=== PATIENT | female | born 1990 ===

== ENCOUNTER 2019-02-11 16:03 | Emergency (ER) | payer MEDICAID ==
[2019-01-16 21:30] VITALS: BMI 36.1
[2019-02-11] MEDS: Lactated Ringer's 2,000 ML IV SCH ×2 (16:34→17:45)
[2019-02-11 16:51] LABS: HEMOGLOBIN 11.4 g/dL (12.0-16.0); MEAN CELL VOLUME 89.2 fl (81.0-99.0); MEAN CORPUSCULAR HEMOGLOBIN 29.7 pg (27.0-31.0); MEAN CORPUSCULAR HGB CONC 33.2 g/dL (33.0-37.0); RBC 3.85 Mil/uL (3.80-5.20); RED CELL DISTRIBUTION WIDTH 14.9 % (11.5-14.5); WHITE BLOOD COUNT 9.1 K/uL (4.8-10.8)
[2019-02-11 17:00] LABS: ALB/GLOB RATIO 1.1 (1.0-2.1); ALBUMIN 3.8 g/dL (3.5-5.0); ALT/SGPT 35 U/L (9-52); AST/SGOT 35 U/L (14-36); BLOOD UREA NITROGEN 9 mg/dl (7-17); CALCIUM 9.4 mg/dL (8.4-10.2); GFR NON-AFRICAN AMERICAN > 60
[2019-02-11 17:09] LABS: SQUAMOUS EPITHIAL 9 /hpf (0-5); URINE BACTERIA RARE (<OCC); URINE BILIRUBIN NEGATIVE (NEGATIVE); URINE BLOOD NEGATIVE (NEGATIVE); URINE CLARITY CLOUDY (Clear); URINE COLOR YELLOW (YELLOW); URINE GLUCOSE (UA) NEG (NEGATIVE); URINE LEUKOCYTE ESTERASE TRACE Leu/uL (Negative); URINE PROTEIN NEGATIVE (NEGATIVE); URINE UROBILINOGEN 0.2-1.0 mg/dL (0.2-1.0)
--- NOTE | 2019-02-11 18:48 | OBDCSUM ---
Datetime: 02/11/2019 18:46 Discharged to, Provider: Home Follow up at, Provider: [facility] Disch Instr Activity: Normal activity Disch Instr Diet: Regular Discharge Instructions, Provider: Routine instructions given Discharge Diagnosis, Provider: Shaun Labor - Undelivered Follow up in weeks, Provider: this week as scheduled Disch Referrals: None Contraception discussed, Prov: Yes Disch Activity Restrictions: No sexual activity; Nothing in vagina - [place]iny Breezes, tampons, douche
--- NOTE | 2019-02-11 18:48 | OBHP ---
Datetime: 02/11/2019 16:59 IP Adm Impression: , intrauterine ; No Active Labor; Intact Membranes IP Admit Plan: Observation/Evaluation Admit Comment, IP Provider: 28 yo f 36.2 wk with Prev c-sec due macrosomia, present with cramp since morning, Otherwise patient have no other complains. Pt report good movement she denies fever chills, chest pain, sob, diarrhea, or constipation. PCP Mick Edwards Allergy: Tramadol med: PNV PMH: none PSH c-sec due macrosomia PFH: dad DM, mom healthy social denies smoke drink or drug use 16:58 Assessment and plan 28 yo f 36.2 wk with Prev c-sec due macrosomia, present with cramp since morning, Otherwise p atient have no other complains. WIll observed CBC CMP UA Monitor vitals Monitor heart Monitor for exacerbation IV fluid 2 lit Reassessment 18:33 Pt Symptoms improved CBC CMP and UA WNL Pelvic cervix closed Patient will be discharge to follow up with PCP. ER precaution given Tavon PGY1 case discussed with Dr Khan OB Hospitalist litigation docket manager. With PGY1, i saw and examied this patinet. Agree with note...Pt had x 1 and C/S x 1. Not in active labor...labor instructions given. Tyleno 325mg 2 tab po q 4h prn lonny n. chart rev'd MAHNDO Pelvic Type - PN: Adequate Extremities - PN: Normal Abdomen - PN: Normal Back - PN: Normal Breast - PN: Normal Lungs - PN: Normal Heart - PN: Normal Thyroid - PN: Normal Neurologic - PN: Normal HEENT - PN: Normal General - PN: Normal Presentation-Admit: Vertex IP Fetus A Comments: Sono cephalic FHR - Baseline A Provider: 140 Comments, ACOG Physical Exam: heart s1 s2 heard no extra heart sound lung clear abd nontender bs+ Cervix closed long Gestation - Est Wks by US: 36.2 IP Hx Assessment: The History has been Reviewed and is Current EGA AdmitDate IP: 36.2 Vital Signs Provider: Reviewed IP Chief Complaint: Uterine contractions NICHD Variability Prov Fetus A: Moderate 6-25bpm NICHD Accel Fetus A IP Provider: 15X15 FHR Category Provider Fetus A: Category I Dilatation, Provider: 0 Effacement, Provider: 0 Station, Provider: 0 Genitourinary Exam: Normal DTRs - PN: Normal
[2019-02-12 04:02] VITALS: BP 124/60; PULSE 103; RESP 16; TEMP 98.3
== END 2019-02-11 20:30 | disposition home or self-care (01) ==
LOC: H.EROB2 16:03
DX: O26.93 Pregnancy related conditions, unspecified, third trimester (principal); R10.2 Pelvic and perineal pain; Z87.59 Personal history of other complications of pregnancy, childbirth and the puerperium; Z3A.36 36 weeks gestation of pregnancy; O09.293 Supervision of pregnancy with other poor reproductive or obstetric history, third trimester
CPT/HCPCS: 80053; 81003; 85027; 96360; 96361; 99283; J7120

== ENCOUNTER 2019-02-28 14:22 | Inpatient (IN) | payer MEDICAID ==
[2019-02-28 14:36] VITALS: BMI 39.4
[2019-02-28] MEDS ORDERED: Lactated Ringer's 1,000 ML IV ONE (15:27)
[2019-02-28] MEDS ORDERED: ceFAZolin 2 GM in Sodium Chloride 0.9% 100 ML IVPB ONE (15:29)
[2019-02-28] MEDS ORDERED: Oxytocin 30 UNIT in NS 500 ml 30 UNITS/500 ML BAG IV ONE ×2 (15:29→16:21)
[2019-02-28] MEDS ORDERED: OXYTOCIN/0.9 % NS 20 UNIT/1,000 ML BAG IV SCH ×2 (15:30→21:43)
[2019-02-28] MEDS ORDERED: Lactated Ringer's 1,000 ML IV SCH (15:30)
[2019-02-28 16:00] LABS: HEMOGLOBIN 12.1 g/dL (12.0-16.0); MEAN CORPUSCULAR HEMOGLOBIN 29.4 pg (27.0-31.0); RBC 4.13 Mil/uL (3.80-5.20); RED CELL DISTRIBUTION WIDTH 15.2 % (11.5-14.5); WHITE BLOOD COUNT 8.6 K/uL (4.8-10.8)
[2019-02-28 16:19] LABS: ALBUMIN 3.3 g/dL (3.5-5.0); ALT/SGPT 36 U/L (9-52); AST/SGOT 36 U/L (14-36); BLOOD UREA NITROGEN 13 mg/dl (7-17); CALCIUM 9.1 mg/dL (8.4-10.2); GFR NON-AFRICAN AMERICAN > 60; URIC ACID 3.7 mg/Dl (2.2-7.5)
[2019-02-28] MEDS ORDERED: Morphine 5 mg/10 ml preservative-free Inj(Duramorph) ONE (17:40)
--- NOTE | 2019-02-28 17:47 | OBADHP ---
Datetime: 02/28/2019 14:57 Admit Comment, IP Provider: 28 YO with IUP at EGA 38.5 weeks, EDC 03/09/19, presents to EDOB w ith c/o Uterine CONTX that started at 10 PM yesterday and has increased in frequency and intensity no w Q 30 min x last 10 min, patient denies VB, LOF. Patient reports she is schedule for repeat C-sectio n this 03/02/19. Patient endorses +FM. Denies PAUL, CP, SOB, N/V, dysuria, fever or other complaint at pr esent. ROS: as per HPI OBGYN: 1st term 2010 , second 2011 due to macrofetus. X1 AB. Pat ient denies problems during current . Provider: Dr Iglesias, at [facility] PMH: Denies FMH: Denies PSH: x1 , Vaginal hernia repair, Hemorrhoids. Medications: PNV Allergies: Tramadol Social: Denies tobacco, alcohol or drug use in this labs: RPR/HIV non-reactive, negative, GBS negative. ABO O+ ab negative PE GEN: Appears unconfortable due to pain HEENT: NCAT RESP: CTA bilateral CV: RRR, no murmurs ABD: Gravid EXT: Ankle edema+2 A/P 28 YO with IUP at EGA 38.5 weeks, EDC 03/09/19, with c/o Uterine CONTX coming for evaluation of possible onset of labor, with prior history of -Admit to L_D -IVF LR -meternal VS minitoring --FHR monitoring Case discussed with Dr Antione Wills MD PGY1 OB Hospitalist on-call - With jeep mechanic, condition explained to pt incl elevated BP, previous C/S . Shje deceliend and agrees to operative deliovery. Informed consent obtianed with jeep mechanic p resent Extremities - PN: Abnormal Abdomen - PN: Normal Breast - PN: Not Done Lungs - PN: Normal Heart - PN: Normal HEENT - PN: Normal General - PN: Normal FHR - Baseline A Provider: 145 Comments, ACOG Physical Exam: see note IP Hx Assessment: The History has been Reviewed and is Current IP Chief Complaint: Uterine contractions; Maternal discomfort NICHD Variability Prov Fetus A: Moderate 6-25bpm NICHD Accel Fetus A IP Provider: [id number] NICHD Decel Fetus A IP Provider: None EGA AdmitDate IP: 38.5 IP Adm Impression: Term, intrauterine IP Admit Plan: Admit to unit Datetime: 02/28/2019 14:39 Vital Signs Provider: Reviewed Datetime: 02/11/2019 16:59 Pelvic Type - PN: Adequate Back - PN: Normal Thyroid - PN: Normal Neurologic - PN: Normal Presentation-Admit: Vertex IP Fetus A Comments: Sono cephalic Gestation - Est Wks by US: 36.2 FHR Category Provider Fetus A: Category I Dilatation, Provider: 0 Effacement, Provider: 0 Station, Provider: 0 Genitourinary Exam: Normal DTRs - PN: Normal
[2019-02-28] MEDS ORDERED: Absorbable Gelatin Sponge Size 12-7 ONE (18:21)
[2019-02-28] MEDS ORDERED: Oxycodone/Acetaminophen 5/325 mg Tab PO PRN ×3 (19:21→21:43)
[2019-02-28] MEDS ORDERED: DiphenhydrAMINE 50 mg/ml Inj IVP PRN ×2 (19:44→21:43)
[2019-02-28] MEDS ORDERED: Simethicone 80 mg Chewtab PO SCH (22:00)
[2019-02-28] MEDS: Simethicone 80 mg Chewtab PO SCH (22:00)
[2019-03-01] MEDS: Simethicone 80 mg Chewtab PO SCH ×4 (03:59→22:03)
[2019-03-01 06:08] LABS: MEAN CELL VOLUME 89.5 fl (81.0-99.0); MEAN CORPUSCULAR HGB CONC 33.5 g/dL (33.0-37.0); RBC 3.29 Mil/uL (3.80-5.20); RED CELL DISTRIBUTION WIDTH 15.4 % (11.5-14.5)
[2019-03-01 06:29] LABS: HEMOGLOBIN 9.9 g/dL (12.0-16.0)
[2019-03-01] MEDS: Oxycodone/Acetaminophen 5/325 mg Tab PO PRN (06:40)
--- NOTE | 2019-03-01 07:52 | OBDS ---
DELIVERY PERSONNEL Delivery Doctor: Dominick Talbot DO Scrub Nurse: Monserrat Palm Nutritionalist: Yareli Griffin RN Anesthesiologist: Dr. Jacob MATERNAL INFORMATION Delivery Anesthesia: Spinal Medications in Delivery: Pitocin 30 Estimated Blood Loss (ml): 800 Placenta Cultured: No Maternal Complications: None Provider Comments: Pre Op Dx IUP at 38+w; previous C/S x 1 declined Post Op Dx same Procedure: repeat LTCS via previous Pfannenstiel incision Surgeon Dr Talbot Asst Dr Vanessa Bach OB fellow AnesthL Dr Jacob Anesth: spinal Findings: live infant deliveed from [facility] presentation One loose cord noted/thin meconium -pelvic adhesions -Placenta delivered intact spontaneously -She remained stbale EBL 800cc (Annotations: Data stored by [facility] on behalf of user) LABOR SUMMARY EDC: 03/09/2019 00:00 No. Babies in Womb: 1 Attempted: No Labor Anesthesia: None LABOR INFORMATION Reason for Induction: Not Applicable Onset of Labor: 02/28/2019 09:45 Oxytocin: N/A Group B Beta Strep: Negative Steroids Given: None Reason Steroids Not Administered: Not Applicable MEMBRANES Membranes Rupture Method: Artificial Rupture of Membranes: 02/28/2019 18:07 Length of Rupture (hrs): 0.00 Amniotic Fluid Color: Light Meconium Amniotic Fluid Amount: Small Amniotic Fluid Odor: Normal STAGES OF LABOR Stage 3 hrs: 0 Stage 3 min: 1 Total Time in Labor hrs: 8 Total Time in Labor min: 23 CSECTION DELIVERY Primary Indication: Repeat Elective Secondary Indication: Repeat Elective CSection Urgency: Elective CSection Incidence: Repeat Labor: Labor Elective: Elective CSection Incision: Lower Uterine Transverse BABY A INFORMATION Infant Delivery Date/Time: 02/28/2019 18:07 Method of Delivery: Born in Route : No : N/A Forceps: N/A Vacuum Extraction: N/A Shoulder Dystocia : No SHOULDER DYSTOCIA BABY A Infant Delivery Date/Time: 02/28/2019 18:07 PRESENTATION/POSITION BABY A Presentation: Cephalic Cephalic Presentation: Vertex Breech Presentation: N/A PLACENTA INFORMATION BABY A Placenta Delivery Time : 02/28/2019 18:08 Placenta Method of Delivery: Spontaneous Placenta Status: Delivered SCORES BABY A Heart Rate 1 min: >100 bpm Resp Effort 1 min: Good Cry Reflex Irritability 1 min: Cough or Sneeze or Pulls Away Muscle Tone 1 min: Active Motion Color 1 min: Body [place], Extremities Blue Resuscitation Effort 1 min: Tactile Stimulation SCORE 1 MIN: 9 Heart Rate 5 min: >100 bpm Resp Effort 5 min: Good Cry Reflex Irritability 5 min: Cough or Sneeze or Pulls Away Muscle Tone 5 min: Active Motion Color 5 min: Body [place], Extremities Blue Resuscitation Effort 5 min: Tactile Stimulation SCORE 5 MIN: 9 INFORMATION BABY A Gestational Age at Delivery: 38.0 Gestational Status: Term Infant Outcome : Liveborn Infant Condition : Stable Sex: Female IDENTIFICATION/MEDS BABY A ID Band Number: [id number] ID Band Location: Left Leg; Left Arm WEIGHT/LENGTH BABY A Infant Birthweight (gms): 3430 Weight (lb): 7 Weight (oz): 9 CORD INFORMATION BABY A No. Cord Vessels: 3 Nuchal Cord Other: loose cord around body Suction: None ASSESSMENT BABY A Infant Complications: None Physical Findings at Delivery: Within Normal Limits Infant Respirations: Appears Normal [employer]/ALS Called : No Care By: Dr. Montelongo/Hugo Transferred To: Remains with Mother
--- NOTE | 2019-03-01 07:53 | OBDS ---
DELIVERY PERSONNEL Delivery Doctor: Dominick Talbot DO Scrub Nurse: Monserrat Palm Custodian Athletic Equipment: Yareli Griffin RN Anesthesiologist: Dr. Jacob MATERNAL INFORMATION Delivery Anesthesia: Spinal Medications in Delivery: Pitocin 30 Estimated Blood Loss (ml): 800 Placenta Cultured: No Maternal Complications: None Provider Comments: Pre Op Dx IUP at 38+w; previous C/S x 1 declined Post Op Dx same Procedure: repeat LTCS via previous Pfannenstiel incision Surgeon Dr Talbot Asst Dr Vanessa Bach OB fellow AnesthL Dr Jacob Anesth: spinal Findings: live infant deliveed from [facility] presentation One loose cord noted/thin meconium -pelvic adhesions -Placenta delivered intact spontaneously -She remained stbale EBL 800cc (Annotations: Data stored by [facility] on behalf of user) LABOR SUMMARY EDC: 03/09/2019 00:00 EDC: 03/09/2019 00:00 No. Babies in Womb: 1 Attempted: No Labor Anesthesia: None LABOR INFORMATION Reason for Induction: Not Applicable Onset of Labor: 02/28/2019 09:45 Oxytocin: N/A Group B Beta Strep: Negative Steroids Given: None Reason Steroids Not Administered: Not Applicable MEMBRANES Membranes Rupture Method: Artificial Rupture of Membranes: 02/28/2019 18:07 Length of Rupture (hrs): 0.00 Amniotic Fluid Color: Light Meconium Amniotic Fluid Amount: Small Amniotic Fluid Odor: Normal STAGES OF LABOR Stage 3 hrs: 0 Stage 3 min: 1 Total Time in Labor hrs: 8 Total Time in Labor min: 23 CSECTION DELIVERY Primary Indication: Repeat Elective Secondary Indication: Repeat Elective CSection Urgency: Elective CSection Incidence: Repeat Labor: Labor Elective: Elective CSection Incision: Lower Uterine Transverse BABY A INFORMATION Infant Delivery Date/Time: 02/28/2019 18:07 Method of Delivery: Born in Route : No : N/A Forceps: N/A Vacuum Extraction: N/A Shoulder Dystocia : No SHOULDER DYSTOCIA BABY A Delivery Date/Time: 02/28/2019 18:07 PRESENTATION/POSITION BABY A Presentation: Cephalic Cephalic Presentation: Vertex Breech Presentation: N/A PLACENTA INFORMATION BABY A Placenta Delivery Time : 02/28/2019 18:08 Placenta Method of Delivery: Spontaneous Placenta Status: Delivered SCORES BABY A Heart Rate 1 min: >100 bpm Resp Effort 1 min: Good Cry Reflex Irritability 1 min: Cough or Sneeze or Pulls Away Muscle Tone 1 min: Active Motion Color 1 min: Body [place], Extremities Blue Resuscitation Effort 1 min: Tactile Stimulation SCORE 1 MIN: 9 Heart Rate 5 min: >100 bpm Resp Effort 5 min: Good Cry Reflex Irritability 5 min: Cough or Sneeze or Pulls Away Muscle Tone 5 min: Active Motion Color 5 min: Body [place], Extremities Blue Resuscitation Effort 5 min: Tactile Stimulation SCORE 5 MIN: 9 INFORMATION BABY A Gestational Age at Delivery: 38.0 Gestational Status: Term Infant Outcome : Liveborn Infant Condition : Stable Infant Sex: Female IDENTIFICATION/MEDS BABY A ID Band Number: [id number] ID Band Location: Left Leg; Left Arm WEIGHT/LENGTH BABY A Infant Birthweight (gms): 3430 Weight (lb): 7 Weight (oz): 9 CORD INFORMATION BABY A No. Cord Vessels: 3 Nuchal Cord Other: loose cord around body Suction: None ASSESSMENT BABY A Infant Complications: None Physical Findings at Delivery: Within Normal Limits Infant Respirations: Appears Normal [place]/ALS Called : No Care By: Dr. Montelongo/Hugo Transferred To: Remains with Mother
[2019-03-01] MEDS ORDERED: Multivitamin With Minerals Tab PO SCH (09:00)
--- NOTE | 2019-03-01 09:05 | OBPPN ---
Datetime: 03/01/2019 05:59 PP Pain Prov: Within normal limits PP Nausea Prov: Denies PP Flatus Prov: Yes PP BM Prov: No PP Breasts Prov: Not Done PP Heart Prov: Normal PP Lungs Prov: Normal PP Abdomen/Uterus Prov: Normal PP Lochia Prov: Normal PP Vulva/Perineum Prov: Normal PP CVA Tenderness Prov: Normal PP Extremities Prov: Normal PP C/S Incision Prov: Normal PP Progress Prov: Normal PP Comments Phys Exam Prov: See Note PP Impression Prov: Normal progression PP Plan Prov: Continue present management PP Progress Note Prov: S: 28 YO s/p today POD 1. Patient seen and examined at bedside this morning. Patient has no acute complaints, she feels well, reports that the pain is controlled w ith pain medication. Patient have not ambulated yet. Pt is breast and bottle feeding, she is tolerati ng regular diet. Lochia like menses in volume. +Flatus, -BM. Denies fevers, chills, dizziness, chest pain, SOB, N/V/D, hematuria or dysuria. VS: stable GEN: NAD Cardio: RRR, S1S2 present, no murmurs noted Lungs: clear breath sounds b/l, no wheezing Abdomen: BS+, appropriate tenderness to palpation, incision covered, need to be removed today. Ut erus is firm and at the level of the umbilicus. Appropriate tenderness EXT: Ivana's negative NEURO/PSYCH: AAOx3, no grossly focal deficits, preserved affect and mood. A/P: 28 YO today POD 1 s/p . Pt is stable, doing well, afebrile, tolerating pain with medicati on, hemodynamically stable. Normal progression after on POD1 -encouraged ambulation -Motrin 600mg po q6h for pain as per pain scale -Senakot 17.2mg po QHS -Encourage -Continue vit Ysabri PGy1 Case reviewed and discussed with attending The patient was seen with the resident I agree with the note Vital Signs Provider PP: Reviewed
[2019-03-01] MEDS: Multivitamin With Minerals Tab PO SCH (09:11)
[2019-03-01] MEDS ORDERED: Hydrocortisone-Pramoxine 1%-1% Foam(10 gm) TOP PRN (19:54)
[2019-03-02] MEDS: Simethicone 80 mg Chewtab PO SCH ×4 (04:43→21:49)
[2019-03-02] MEDS: Multivitamin With Minerals Tab PO SCH (09:27)
--- NOTE | 2019-03-02 11:37 | OBPPN ---
Datetime: 03/02/2019 06:11 PP Pain Prov: Within normal limits PP Nausea Prov: Denies PP Flatus Prov: Yes PP BM Prov: No PP Breasts Prov: Not Done PP Heart Prov: Normal PP Lungs Prov: Normal PP Abdomen/Uterus Prov: Normal PP Lochia Prov: Normal PP Vulva/Perineum Prov: Not Done PP CVA Tenderness Prov: Not Done PP Extremities Prov: Abnormal PP C/S Incision Prov: Normal PP Progress Prov: Normal PP Impression Prov: Normal progression PP Plan Prov: Continue present management PP Progress Note Prov: S: 28 YO s/pod #2 of . Patient seen and examined at bedside this morning. Ambulating w/ some discomfort due to bilateral leg swelling. Denies calf tenderness/erythema. Tolerating PO intake. Denies difficulties Denies pain. Lochia like menses. Endorses passing gas, no BM. VS: stable GEN: NAD Cardio: RRR, S1S2 present, no murmurs noted Lungs: clear breath sounds b/l, no wheezing Abdomen: BS+, soft, non-tender. Uterus is firm and at the level of the umbilicus. EXT: Bilateral lower extermity swelling; Ivana's negative. No erythema/tenderness NEURO/PSYCH: AAOx3, no grossly focal deficits, preserved affect and mood. A/P: 28 YO today POD 2 s/p . Normal progression -encouraged ambulation -Motrin 600mg po q6h for pain as per pain scale -Senakot 17.2mg po QHS -Encourage -Continue vit -Possible discharge tomorrow 03/03/2019 gordo Nava Case reviewed and discussed with attending Addendum by Dr. Martinez: I have evaluated patient independently and I agree with the above Vital Signs Provider PP: Reviewed; Within Normal Limits
[2019-03-02] MEDS: Oxycodone/Acetaminophen 5/325 mg Tab PO PRN (14:15)
[2019-03-03] MEDS: Simethicone 80 mg Chewtab PO SCH ×2 (04:16→12:07)
[2019-03-03] MEDS: Multivitamin With Minerals Tab PO SCH (08:46)
--- NOTE | 2019-03-03 16:58 | OBDCSUM ---
Datetime: 03/03/2019 06:44 Discharged to, Provider: Home Follow up at, Provider: [facility] Disch Instr Activity: Normal activity; May be up to bathroom; May be up for meals; May Shower Disch Instr Diet: Regular Discharge Diet restrict Prov: none Discharge Instructions, Provider: Routine instructions given Discharge Diagnosis, Provider: Term Delivered Discharge Time: 03/03/2019 11:08 Follow up in weeks, Provider: 1 week Disch Referrals: None Contraception discussed, Prov: Yes Disch Activity Restrictions: Minimize stair-climbing; No sexual activity; Nothing in vagina - Interc ourse, tampons, douche Discharge Comment, Provider: Discharge Summary DOA: 02/28/2019 EGA: 38.5 Diagnosis: S/P repeat on 02/28/2019 L_D summary: Pt is s/p . Pain was well controlled with pain meds. No nausea. Tolerated re gular diet well. Passing flatus and had a BM. Voiding well w/o difficulties. Breast and formula feedi ng without difficulty. Lochia is similar to menses volume. DOL: 02/28/19 @18:07 NB: F : 07/10 Weight: 3430 gm Lochia less menses, mild pain, controlled with medications Blood type: O -, Antibody neg aCBC: 12.1/36.7 pCBC: 9.9/29.5 Discharge Date: 03/03/2019 Discharge Instructions: -Encourage -Encourage ambulation -Ibuprofen mild to moderate pain -Continue vitamins at home -Start ferrous sulfate 325mg PO QD - ED precautions: If excessive bleeding, pain that does not get relief, fever >100.4, palpitations , SOB, CP or other concerning symptom go to the ED. - PT was urged if feeling sad, mood swing, depression, neglect of baby, suicidal thoughts, homicid al thoughts go to ER or call 911 for help - Pt should go to her Primary care doctor if have difficulty with breast feeding - F/U at [facility] within 1 week for wound check, and 4-6 weeks for checkup. Karina Aljamal, pgyi Contraception after Delivery: Undecided
--- NOTE | 2019-03-03 16:58 | OBPPN ---
Datetime: 03/03/2019 06:38 PP Pain Prov: Within normal limits PP Nausea Prov: Denies PP Flatus Prov: Yes PP BM Prov: No PP Breasts Prov: Not Done PP Heart Prov: Normal PP Lungs Prov: Normal PP Abdomen/Uterus Prov: Normal PP Lochia Prov: Normal PP Vulva/Perineum Prov: Not Done PP CVA Tenderness Prov: Normal PP Extremities Prov: Normal PP C/S Incision Prov: Normal PP Progress Prov: Normal PP Impression Prov: Normal progression PP Plan Prov: Discharge PP Progress Note Prov: S: 28 YO s/pod #3 of . Patient seen and examined. Doing well. Tolerating PO intake. Ambulation improved. Lochia like menses. Endorses passing gas, no BM. VS: stable GEN: NAD Cardio: RRR, S1S2 present, no murmurs noted Lungs: clear breath sounds b/l, no wheezing Abdomen: BS+, soft, non-tender. Uterus is firm and at the level of the umbilicus. EXT: Bilateral lower extermity swelling; Ivana's negative. No erythema/tenderness NEURO/PSYCH: AAOx3, no grossly focal deficits, preserved affect and mood. A/P: 28 YO today POD 3 s/p . Normal progression -encouraged ambulation -Motrin 600mg po q6h for pain as per pain scale -Senakot 17.2mg po QHS -Encourage -Continue vit -Discharge today gordo Nava Case reviewed and discussed with attending OB Hospitalist on-call Pt seeen on rounds +BM - discharge home and follow up at [facility] in 1-2w IP PP Procedures: None Vital Signs Provider PP: Reviewed; Within Normal Limits
[2019-03-03 19:53] VITALS: BP 133/81; PULSE 98; RESP 20; TEMP 98.3; O2SAT 97
== END 2019-03-03 14:50 | disposition home or self-care (01) | DRG 371 ==
LOC: H.EROB2 14:22 → H.L&D 15:27 → H.OB/GYN 21:44
PROVIDERS: ADMIT Obstetrics & Gynecology; ATTEND Obstetrics & Gynecology
PROC: 10D00Z1 Extraction of Products of Conception, Low, Open Approach (ICD-10-PCS; principal; 2019-02-28)
PROC: 4A1HXCZ Monitoring of Products of Conception, Cardiac Rate, External Approach (ICD-10-PCS; 2019-02-28)
DX: O34.211 Maternal care for low transverse scar from previous cesarean delivery (principal); N85.8 Other specified noninflammatory disorders of uterus; O77.0 Labor and delivery complicated by meconium in amniotic fluid; O69.81X0 Labor and delivery complicated by cord around neck, without compression, not applicable or unspecified; Z37.0 Single live birth; Z3A.38 38 weeks gestation of pregnancy